=== PATIENT | female | born 1985 | race Caucasian/White ===

== ENCOUNTER 2020-01-11 09:50 | Emergency (ER) | payer BC, SELFPAY ==
[2020-01-11] VITALS (7 sets, daily range): BP systolic 103–116; BP diastolic 55–63; PULSE 72–96; RESP 17–18; TEMP 36.7; O2SAT 97–100; BMI 21.9
--- NOTE | 2020-01-11 10:01 | CT_ITS ---
WS: [id number] CT ABDOMEN PELVIS TECHNIQUE: Noncontrast CT of the abdomen and pelvis with coronal and sagittal reformatted images. CLINICAL INFORMATION: L flank/abdominal pain COMPARISON: None. DLP: 715.[address] scans at [facility] use at least one of these dose optimization techniques: automat ed exposure control; mA and/or kV adjustment per patient size (includes targeted exams where dose is matched to clinical indication); or iterative reconstruction. FINDINGS: 3 mm calculus in the pelvis appears to be in or adjacent to the distal left ureter just pro ximal to the UVJ. Mild left hydroureter. Recommend correlation for left flank pain symptoms. No obstr ucting right renal parenchymal or ureteral calculi. No hydronephrosis in either kidney. Bladder is co mpressed in the inferior pelvis due to adnexal cystic lesion and lobulated uterus. Right adnexal low-attenuation cystic-appearing lesion measuring 4.5 x 4.1 CM. Additional left adnexal cyst measuring 2.1 x 2.1 CM. Small amount of free fluid in the cul-de-sac eccentric to the right. No periaortic lymphadenopathy. No pelvic lymphadenopathy. Noncontrast liver is normal. Normal noncontrast spleen. Normal adrenal glands. Appendix not well visu alized but no evidence of acute appendicitis. Lung bases are well aerated. Normal GE junction. Noncontrast pancreas is normal.Rectosigmoid constipa tion. Mild lumbar curve convex right. CT/CT kidney stone 76810 IMPRESSION: 1. 3 mm calculus distal LEFT ureter just proximal to the UVJ. Mild left hydrou reter. No hydronephrosis. Recommend correlation for left flank pain. 2. No obstructing RIGHT renal parenchymal or ureteral calculi. 3. Large right adnexal low-attenuation cystic-appearing lesion measuring 4.1 x 4.5 CM. Additional smaller left ovarian cyst measuring 2.1 CM. Recommend furth er evaluation with pelvic ultrasound. 4. Small amount of free fluid in the cul-de-sac eccentric to the right. 5. Mild rectosigmoid constipation. Notified WALKER Quinonez at 01/11/2020 11:46 AM.
--- NOTE | 2020-01-11 10:01 | W.ED.FEMALGU ---
HPI - Female Genitourinary General: Chief complaint: Urogenital-Female Stated complaint: RIGHT FLANK AND ABD PAIN Time Seen by Provider: 01/11/20 09:53 Source: patient Mode of arrival: ambulatory Limitations: no limitations History of Present Illness: HPI Narrative: Patient is a nice 34-year-old female who presents to ED today with a complaint of fairly sudden onset left flank pain that seems to radiate around into her left abdomen. She is describing slight dysuria and urinary urgency. She has no personal history of kidney stones. She denies any UTI symptoms prior to today. She has not been running fevers. She has not had any vomiting. Bowel movements have been normal. MD elicited complaint: flank pain Onset (ago): hour(s) Location of symptoms: LLQ and flank Quality of pain: sharp Consistency: constant Vaginal discharge: none Vaginal bleeding: none Urinary symptoms: Dysuria and Urgency Relieving factors: none Associated symptoms: Reports abdominal pain; Deny headache(s), nausea or vaginal discharge Sexual activity: Yes Patient : No Review of Systems Const: Denies: fever(s) or chills Card: Denies: chest pain Resp: Denies: dyspnea GI: Reports: abdominal pain; Denies: nausea, vomiting or diarrhea : Reports: flank pain, dysuria and urinary urgency; Denies: difficulty voiding, urinary frequency, urinary hesitancy, dribbling, hematuria, genital lesions, vaginal odor, vaginal bleeding, vaginal discharge or pelvic pain Musc: Reports: back pain (L flank); Denies: neck pain, extremity pain, extremity swelling, joint pain or joint swelling Skin/Breast: Denies: rash Neuro: Denies: headache(s) Physical Exam Const: COMMON NORMALS: no acute distress, average body habitus, patient oriented x3, no limitations, healthy appearing, alert and well nourished Resp: COMMON NORMALS: normal respiratory effort and clear to auscultation bilaterally AUSCULTATION: clear to auscultation bilaterally Cardio: COMMON NORMALS: regular rate and regular rhythm RATE: regular rate RHYTHM: regular rhythm GI: COMMON NORMALS: Normal to inspection, nondistended, normoactive bowel sounds present, Soft to palpation, No hepatosplenomegaly present and no masses PALPATION: Yes Soft to palpation, Yes Tenderness to palpation present (GI) (L lower abdomen) and Yes No hepatosplenomegaly present : BLADDER/KIDNEY EXAM: Yes CVA tenderness on the left Back/Pelvis: GENERAL BACK: Yes CVA tenderness Neuro: COMMON NORMALS: patient oriented x3 SENSORIUM/ORIENTATION: Yes alert Skin: COMMON NORMALS: no rashes or lesions noted GENERAL SKIN EXAM: no rashes or lesions noted Course Vital Signs: Vital signs: Vital Signs Temperature 98.1 F 01/11/20 09:56 Pulse Rate 84 01/11/20 13:53 Respiratory Rate 18 01/11/20 13:53 Blood Pressure 103/55 01/11/20 13:53 Pulse Oximetry 97 01/11/20 13:53 MDM - Female MDM Narrative: Medical decision making narrative: Patient's pain controlled here with IV pain medications. She has not been vomiting. CT scan showing 3 mm UVJ stone. She will be given urinary strainer and follow-up with Dr. Chou. CT scan also showed large right and left adnexal cysts, one of which being close to 4.5 cm. Recommended ultrasound. Ultrasound confirmed large hemorrhagic cyst. She will be given follow-up with women's health for further evaluation of this. Strict return to ED precautions given. Lab Data: Labs: Lab Results 01/11/20 01/11/20 01/11/20 Range/Units 10:04 10:04 10:04 WBC 6.2 (4.0-10.0) 10^3/ uL RBC 4.69 (4.1-5.3) 10^6/u L Hgb 13.1 (11.5-15.3) g/dL Hct 41.6 (37.0-47.0) % MCV 88.7 (81-99) fL MCH 27.9 L (28.0-34.0) pg MCHC 31.5 (30.0-36.0) g/dL RDW 12.9 (12.1-15.1) % Plt Count 297 (130-400) 10^3/c mm MPV 9.6 (7.4-10.4) fL Neut % (Auto) 58.7 % Lymph % (Auto) 32.0 % [place] % (Auto) 6.7 % Eos % (Auto) 1.6 % Baso % (Auto) 0.7 % Neut # (Auto) 3.61 (1.8-7.7) 10^3/u L Lymph # (Auto) 2.0 (0.8-4.8) 10^3/u L [place] # (Auto) 0.4 (0.2-0.9) 10^3/u L Eos # (Auto) 0.1 (0.0-0.8) 10^3/u L Baso # (Auto) 0.0 (0.0-0.1) 10^3/u L Nucleated RBC % (a uto) 0 % Nucleated RBCs # 0.0 /100WBC Sodium 139 (136-145) mmol/L Potassium 4.5 (3.5-5.1) mmol/L Chloride 105 (98-107) mmol/L Carbon Dioxide 26 (22-29) mmol/L Anion Gap 12.5 (5-19) BUN 14 (6-20) mg/dL Creatinine 0.9 (0.5-0.9) mg/dL GFR Calculation 72.6 L (90-130) mL/min Glucose 113 (65-115) mg/dL Calculated Osmolal ity 285 (285-295) mOsm/k g Calcium 9.4 (8.5-10.5) mg/dL Total Bilirubin 0.3 (0.15-1.2) mg/dL AST 16 (0-32) U/L ALT 10 (0-33) U/L Alkaline Phosphata se 57 (35-105) IU/L Total Protein 7.2 (6.6-8.7) g/dL Albumin 4.5 (3.5-5.2) g/dL Globulin 2.7 (1.3-4.6) g/dL HCG, Qual Negative (Negative) Urine Color (Yellow) Urine Appearance (CLEAR) Urine pH (5-7) Ur Specific Gravit y (1.005-1.030) Urine Protein (Negative) Urine Glucose (UA) (Normal) Urine Ketones (Negative) Urine Blood (Negative) Urine Nitrate (Negative) Urine Bilirubin (NEGATIVE) Urine Urobilinogen (Negative) mg/dL Ur Leukocyte Danyell ase (Negative) Urine RBC (0-2) /hpf Urine WBC (0-5) /hpf Ur Squamous Epith Cells (0-5) Amorphous Sediment Urine Bacteria (NONE) 01/11/20 Range/Units 10:40 WBC (4.0-10.0) 10^3/ uL RBC (4.1-5.3) 10^6/u L Hgb (11.5-15.3) g/dL Hct (37.0-47.0) % MCV (81-99) fL MCH (28.0-34.0) pg MCHC (30.0-36.0) g/dL RDW (12.1-15.1) % Plt Count (130-400) 10^3/c mm MPV (7.4-10.4) fL Neut % (Auto) % Lymph % (Auto) % [place] % (Auto) % Eos % (Auto) % Baso % (Auto) % Neut # (Auto) (1.8-7.7) 10^3/u L Lymph # (Auto) (0.8-4.8) 10^3/u L [place] # (Auto) (0.2-0.9) 10^3/u L Eos # (Auto) (0.0-0.8) 10^3/u L Baso # (Auto) (0.0-0.1) 10^3/u L Nucleated RBC % (a uto) % Nucleated RBCs # /100WBC Sodium (136-145) mmol/L Potassium (3.5-5.1) mmol/L Chloride (98-107) mmol/L Carbon Dioxide (22-29) mmol/L Anion Gap (5-19) BUN (6-20) mg/dL Creatinine (0.5-0.9) mg/dL GFR Calculation (90-130) mL/min Glucose (65-115) mg/dL Calculated Osmolal ity (285-295) mOsm/k g Calcium (8.5-10.5) mg/dL Total Bilirubin (0.15-1.2) mg/dL AST (0-32) U/L ALT (0-33) U/L Alkaline Phosphata se (35-105) IU/L Total Protein (6.6-8.7) g/dL Albumin (3.5-5.2) g/dL Globulin (1.3-4.6) g/dL HCG, Qual (Negative) Urine Color Yellow (Yellow) Urine Appearance Clear (CLEAR) Urine pH 7 (5-7) Ur Specific Gravit y 1.015 (1.005-1.030) Urine Protein Neg (Negative) Urine Glucose (UA) Norm (Normal) Urine Ketones Negative (Negative) Urine Blood 2+ H (Negative) Urine Nitrate Negative (Negative) Urine Bilirubin Neg (NEGATIVE) Urine Urobilinogen Neg (Negative) mg/dL Ur Leukocyte Danyell ase Negative (Negative) Urine RBC 10-15 H (0-2) /hpf Urine WBC 0-4 H (0-5) /hpf Ur Squamous Epith Cells 0-4 H (0-5) Amorphous Sediment Not Reportable Urine Bacteria 2+ H (NONE) Imaging Data: CT Abd/Pel: Radiologist's impression: [facility] [address] [place] [address] CT Scan Report Signed Patient: Nadine Claire Unit #: [id number] : 1985 Age/Sex: 34 / F ADM Date: 01/11/20 Loc: ER Room/Bed: Attending Dr: Ordering Provider/Ordering MD: Fatimah Ordaz Date of Service: 01/11/20 Procedure(s): CT kidney stone 31032 Accession Number(s): [id number] Report Number: [id number] WS: [id number] CT ABDOMEN PELVIS TECHNIQUE: Noncontrast CT of the abdomen and pelvis with coronal and sagittal reformatted images. CLINICAL INFORMATION: L flank/abdominal pain COMPARISON: None. DLP: 715.[address] scans at [facility] use at least one of these dose optimization techniques: automated exposure control; mA and/or kV adjustment per patient size (includes targeted exams where dose is matched to clinical indication); or iterative reconstruction. FINDINGS: 3 mm calculus in the pelvis appears to be in or adjacent to the distal left ureter just proximal to the UVJ. Mild left hydroureter. Recommend correlation for left flank pain symptoms. No obstructing right renal parenchymal or ureteral calculi. No hydronephrosis in either kidney. Bladder is compressed in the inferior pelvis due to adnexal cystic lesion and lobulated uterus. Right adnexal low-attenuation cystic-appearing lesion measuring 4.5 x 4.1 CM. Additional left adnexal cyst measuring 2.1 x 2.1 CM. Small amount of free fluid in the cul-de-sac eccentric to the right. No periaortic lymphadenopathy. No pelvic lymphadenopathy. Noncontrast liver is normal. Normal noncontrast spleen. Normal adrenal glands. Appendix not well visualized but no evidence of acute appendicitis. Lung bases are well aerated. Normal GE junction. Noncontrast pancreas is normal.Rectosigmoid constipation. Mild lumbar curve convex right. CT/CT kidney stone [id number] IMPRESSION: 1. 3 mm calculus distal LEFT ureter just proximal to the UVJ. Mild left hydroureter. No hydronephrosis. Recommend correlation for left flank pain. 2. No obstructing RIGHT renal parenchymal or ureteral calculi. 3. Large right adnexal low-attenuation cystic-appearing lesion measuring 4.1 x 4.5 CM. Additional smaller left ovarian cyst measuring 2.1 CM. Recommend further evaluation with pelvic ultrasound. 4. Small amount of free fluid in the cul-de-sac eccentric to the right. 5. Mild rectosigmoid constipation. Notified WALKER Quinonez at 01/11/2020 11:46 AM. Dictated By: Xavier Peralta MD Signed By: Xavier Peralta MD Signed Date/Time: 01/11/20 1146 DD/ 1116 US TV: Radiologist's impression: [address] [place] [address] Ultrasound Report Signed Patient: Nadine Claire Unit #: [id number] : 1985 Age/Sex: 34 / F ADM Date: 01/11/20 Loc: ER Room/Bed: Attending Dr: Ordering Provider/Ordering MD: Fatimah Ordaz Date of Service: 01/11/20 Procedure(s): US transvaginal 95284 Accession Number(s): [id number] Report Number: [id number] WS: [id number] ULTRASOUND PELVIS TECHNIQUE: Transvaginal. CLINICAL INFORMATION: Adnexal cysts; pain : No. COMPARISON: None. FINDINGS: Uterus Orientation: Anteverted. Size: 9.4 x 4.2 x 6.5 cm Masses: None. Cervix: Incidental nabothian cysts. Endometrium: Normal. Endometrium thickness: 10mm . Adnexa: Large complex right hemorrhagic ovarian cyst measuring 4.6 x 3.7 x 4.1 cm. Simple left ovarian cyst measuring 2.5 CCM. Right ovary size: 5.4 x 4.1 x 4.7 cm. Left ovary size: 3.0 x 1.6 x 1.9 cm. Free fluid: Present Other findings: None. US/US transvaginal [id number] IMPRESSION: 1. Small amount of free fluid in the cul-de-sac. 2. Complex hemorrhagic cyst right ovary measuring 4.6 x 3.7 x 4.1 cm. Recommend follow-up in one to 2 menstrual cycles. 3. Exophytic simple left ovarian cyst measuring 2.5 x 2.0 x 2.5 cm 4. Normal uterus and endometrium. Endometrium measures 10 mm. Dictated By: Xavier Peralta MD Signed By: Xavier Peralta MD Signed Date/Time: 01/11/20 1315 DD/ 1307 Discharge Plan Discharge Patient Disposition: Home Clinical Impression: Calculus of distal left ureter, Hemorrhagic cyst of right ovary Condition: Stable Prescriptions: New hydrocodone-acetaminophen 5-325 mg tablet 1 tab PO Q6H PRN (Reason: pain) Qty: 20 RF: 0 Zofran 4 mg tablet 4 mg PO Q6H PRN (Reason: nausea and vomiting) Qty: 14 RF: 0 Flomax 0.4 mg capsule 0.4 mg PO DAILY Qty: 10 RF: 0 Discharge Orders: Discharge Order (Routine); Ordered 01/11/20 Ordered By: Fatimah Ordaz Referrals: Beka Woods DO [Family Provider] - Patient Instructions: Ovarian Cyst (ED), Kidney Stones (ED), How to Strain Your Urine (ED) Activity Restrictions/Additional Instructions: Please follow-up with Dr. Chou for your kidney stone. As discussed start straining your urine and bring the stone with you to your appointment if possible. We will also get you set up with an appointment for women's health in regards to your hemorrhagic right ovarian cyst. Please return to the emergency department for worsening or uncontrollable pain, repetitive episodes of vomiting, fevers greater than 100.4, or any other concerns you may have. I hope you begin to feel better soon. Discharge Date/Time: 01/11/20 13:50 Coding Level of Care Code ED Meter Attendant for Chg Fwd Exam Detailed
[2020-01-11 10:10] LABS: Basophils % 0.7 %; Eosinophils # 0.1 10^3/uL (0.0-0.8); Eosinophils % 1.6 %; Hematocrit 41.6 % (37.0-47.0); Hemoglobin 13.1 g/dL (11.5-15.3); Mean Corpuscular HGB Conc 31.5 g/dL (30.0-36.0); Mean Corpuscular Hemoglobin 27.9 pg (28.0-34.0); Mean Corpuscular Volume 88.7 fL (81-99); Mean Platelet Volume 9.6 fL (7.4-10.4); Monocytes # 0.4 10^3/uL (0.2-0.9); Monocytes % 6.7 %; Neutrophils # 3.61 10^3/uL (1.8-7.7); Neutrophils % 58.7 %; Nucleated Red Blood Cells % 0 %; Platelet Count 297 10^3/cmm (130-400); Red Blood Count 4.69 10^6/uL (4.1-5.3); Red Cell Distribution Width 12.9 % (12.1-15.1); White Blood Count 6.2 10^3/uL (4.0-10.0)
[2020-01-11] MEDS: ondansetron 2 mg/ML SDV 2 mL 4 MG IVP (10:11)
[2020-01-11] MEDS: morphine 4 mg/mL SDV 1 mL IVP (10:11)
[2020-01-11] MEDS: sodium chloride 0.9% 1,000 ML 999 ML IV (10:12)
[2020-01-11 10:32] LABS: Alanine Aminotransferase 10 U/L (0-33); Albumin Level 4.5 g/dL (3.5-5.2); Alkaline Phosphatase 57 IU/L (35-105); Anion Gap 12.5 (5-19); Aspartate Amino Transferase 16 U/L (0-32); Blood Urea Nitrogen 14 mg/dL (6-20); Calcium 9.4 mg/dL (8.5-10.5); Carbon Dioxide 26 mmol/L (22-29); Chloride 105 mmol/L (98-107); Globulin 2.7 g/dL (1.3-4.6); Glomerular Filtration Rate 72.6 mL/min (90-130); Glucose 113 mg/dL (65-115); Osmolality Calculated 285 mOsm/kg (285-295); Potassium 4.5 mmol/L (3.5-5.1); Sodium 139 mmol/L (136-145); Total Bilirubin 0.3 mg/dL (0.15-1.2); Total Protein 7.2 g/dL (6.6-8.7)
[2020-01-11 10:37] LABS: HCG, Serum Qual Negative (Negative)
[2020-01-11 10:55] LABS: Bilirubin Urine Neg (NEGATIVE); Blood Urine 2+ (Negative); Glucose Urine UA Norm (Normal); Ketones Urine Negative (Negative); Nitrate Urine Negative (Negative); Protein Urine Neg (Negative); Specific Gravity, Urine 1.015 (1.005-1.030); Urine Appearance Clear (CLEAR); Urine Color Yellow (Yellow); pH Urine 7 (5-7)
[2020-01-11 10:56] LABS: Add Urine Microscopic? YES; Leukocyte Esterase Urine Negative (Negative); Urobilinogen Urine Neg (Negative)
[2020-01-11 10:59] LABS: Squamous Epithelial Cell Urine 0-4 (0-5)
[2020-01-11 11:00] LABS: Add Urine Culture? Yes; Bacteria Urine 2+; WBC Urine 0-4 /hpf (0-5)
--- NOTE | 2020-01-11 11:42 | US_ITS ---
WS: [id number] ULTRASOUND PELVIS TECHNIQUE: Transvaginal. CLINICAL INFORMATION: Adnexal cysts; pain : No. COMPARISON: None. FINDINGS: Uterus Orientation: Anteverted. Size: 9.4 x 4.2 x 6.5 cm Masses: None. Cervix: Incidental nabothian cysts. Endometrium: Normal. Endometrium thickness: 10mm . Adnexa: Large complex right hemorrhagic ovarian cyst measuring 4.6 x 3.7 x 4.1 cm. Simple left ovaria n cyst measuring 2.5 CCM. Right ovary size: 5.4 x 4.1 x 4.7 cm. Left ovary size: 3.0 x 1.6 x 1.9 cm. Free fluid: Present Other findings: None. US/US transvaginal [id number] IMPRESSION: 1. Small amount of free fluid in the cul-de-sac. 2. Complex hemorrhagic cyst right ovary measuring 4.6 x 3.7 x 4.1 cm. Recommen d follow-up in one to 2 menstrual cycles. 3. Exophytic simple left ovarian cyst measuring 2.5 x 2.0 x 2.5 cm 4. Normal uterus and endometrium. Endometrium measures 10 mm.
[2020-01-11] MEDS: ketorolac 30 mg/mL INJ IVP (11:51)
[2020-01-11] MEDS: HYDROmorphone 1 mg/mL INJ 1 mL 0.5 MG IVP (12:16)
--- NOTE | 2020-01-12 09:20 | DCPLANNER ---
manager account management had message to schedule a follow up appointment with Dr. Chou. manager account management called the office of Dr. Chou, spoke with Pattie, gave clinic patients information. manager account management was told that patients information would be printed and reviewed. Clinic will call patient with appointment information.
--- NOTE | 2020-01-13 15:36 | DCPLANNER ---
Patient had a follow up appointment scheduled for 01.13.[address] Chou. Patient did not attend the appointment.
== END 2020-01-11 13:50 | disposition home or self-care (01) ==
PROVIDERS: Emergency Provider Physician Assistant; Family Provider Electrodiagnostic Medicine
DX: N20.1 Calculus of ureter (principal); N83.201 Unspecified ovarian cyst, right side
CPT/HCPCS: 12345; 36415; 74176; 76830; 80053; 81001; 84703; 85025; 87086; 96360; 96361; 96365; 96374; 96375; 99283; 99284; J0131; J1170; J1885; J2270; J2405; J7030

== ENCOUNTER → 2020-04-25 09:05 | Outpatient (BNVA) | payer BC, SELFPAY | PROVIDERS: Family Provider Electrodiagnostic Medicine; PCP Urology; Visit Provider Family Medicine Adult Medicine | DX: R94.4 Abnormal results of kidney function studies (principal); F41.9 Anxiety disorder, unspecified; F32.9 Major depressive disorder, single episode, unspecified; F41.1 Generalized anxiety disorder; F41.0 Panic disorder [episodic paroxysmal anxiety] | CPT/HCPCS: 80053; 80061; 83036; 84443; 85025 ==

== ENCOUNTER 2020-09-27 11:21 | Outpatient (CLI) | payer SELFPAY ==
--- NOTE | 2020-09-27 11:45 | US_ITS ---
WS: [id number] Ultrasound abdomen, limited. History: RIGHT lower quadrant pain. Comparison: None. Ultrasound is directed to the RIGHT lower quadrant in the area of pain. Normal peristalsing loops of bowel. No inflammatory or hypervascular mass or free fluid. US/US appendix [id number] IMPRESSION: No ultrasound evidence for appendicitis.
--- NOTE | 2020-09-27 11:45 | US_ITS ---
WS: [id number] TRANSABDOMINAL PELVIC AND TRANSVAGINAL PELVIC ULTRASOUND HISTORY: Hx of ovarian cyst and now with RLQ pain for 24 hours. COMPARISON: None available. Uterus: 9.8 cm x 5.7 cm x 4.1 cm. Mildly enlarged anteverted uterus. No fibroid or mass. Endometrium: 0.7 cm. Normal homogeneity. No increased vascularity. Right ovary: 5.3 cm x 3.2 cm x 2.5 cm. Slightly enlarged ovary. Ovoid cyst associated with the ovary measures 3.0 x 1.4 x 2.5 cm. There is fluid adjacent to the ovary extending into the cul-de-sac. This fluid is mildly complex. Left ovary: 3.0 cm x 2.0 cm x 1.7 cm. Normal size, echogenicity and vascularity. Small amount of complex free fluid in the cul-de-sac and RIGHT adnexa. US/US pelvic with transvaginal IMPRESSION: 1. Normal endometrium. 2. Small amount of complex free fluid in the RIGHT adnexa and cul-de-sac assoc iated with a RIGHT ovarian cyst which appears partially collapsed.
== END 2020-09-27 11:22 | disposition home or self-care (01) ==
LOC: RAD 11:25
PROVIDERS: PCP Family Medicine Adult Medicine; Visit Provider Family Medicine Adult Medicine
DX: R10.31 Right lower quadrant pain (principal)
CPT/HCPCS: 76705; 76830; 76856; 80053; 85025

== ENCOUNTER → 2020-12-04 11:57 | Outpatient (BNVA) | payer BC, SELFPAY | PROVIDERS: PCP Family Medicine Adult Medicine; Visit Provider Nurse Practitioner Family | DX: Z20.822 Contact with and (suspected) exposure to COVID-19 (principal); J06.9 Acute upper respiratory infection, unspecified | CPT/HCPCS: 87635 ==

== ENCOUNTER 2022-09-23 20:39 | Emergency (ER) | payer BC, SELFPAY ==
[2022-09-23 20:47] VITALS: BP 102/61; PULSE 79; RESP 17; TEMP 36.8; O2SAT 98
[2022-09-23 21:20] LABS: Basophils # 0.1 10^3/uL (0.0-0.1); Basophils % 0.6 %; Eosinophils # 0.1 10^3/uL (0.0-0.8); Eosinophils % 1.7 %; Hematocrit 38.5 % (37.0-47.0); Hemoglobin 12.7 g/dL (11.5-15.3); Lymphocytes # 2.9 10^3/uL (0.8-4.8); Lymphocytes % 34.2 %; Mean Corpuscular Hemoglobin 27.8 pg (28.0-34.0); Mean Corpuscular Volume 84.2 fl (81-99); Mean Platelet Volume 9.3 fL (7.4-10.4); Monocytes # 0.6 10^3/uL (0.2-0.9); Monocytes % 6.5 %; Neutrophils % 56.6 %; Nucleated Red Blood Cells % 0 %; Platelet Count 302 10^3/cmm (130-400); Red Blood Count 4.57 10^6/uL (4.1-5.3); Red Cell Distribution Width 13.4 % (12.1-15.1); White Blood Count 8.5 10^3/uL (4.0-10.0)
[2022-09-23 21:31] LABS: HCG, Serum Qual Negative (Negative)
[2022-09-23 21:43] LABS: Alanine Aminotransferase 12 U/L (0-33); Albumin Level 4.5 g/dL (3.5-5.2); Alkaline Phosphatase 54 U/L (35-105); Anion Gap 15.5 (5-19); Aspartate Amino Transferase 16 U/L (0-32); Blood Urea Nitrogen 11 mg/dL (6-20); Calcium 9.8 mg/dL (8.5-10.5); Carbon Dioxide 27 mmol/L (22-29); Chloride 104 mmol/L (98-107); Globulin 2.9 g/dL (1.3-4.6); Glomerular Filtration Rate 71.3 mL/min (90-130); Glucose 89 mg/dL (65-115); Lipase 49 U/L (13-60); Osmolality Calculated 295 mOsm/kg (285-295); Potassium 3.5 mmol/L (3.5-5.1); Sodium 143 mmol/L (136-145); Total Bilirubin 0.3 mg/dL (0.15-1.2); Total Protein 7.4 g/dL (6.6-8.7)
--- NOTE | 2022-09-23 21:54 | W.ED.ABDPA2 ---
HPI - Abdominal Pain General: Chief Complaint: Abdominal Pain Stated Complaint: abd pain Time Seen by Provider: 09/23/22 21:51 Source: patient Mode of arrival: ambulatory Limitations: no limitations History of Present Illness: 37-year-old female states that suddenly at 6 PM she started having left flank pain that radiated to her left abdomen. States pain is very sharp in nature and was 8 out of 10 she denies any fever denies any dysuria or vaginal bleeding. She states that roughly 30 minutes ago the pain just subsided and its been completely resolved since then she has no complaints at this time denies any worsening or improving factors. Associated Symptoms: Denies chills, diarrhea, dysuria, fever(s), nausea and vomiting Review of Systems Const: Denies: fever(s), chills, body aches or change in appetite ENMT: Denies: throat pain or dental pain Card: Denies: chest pain Resp: Denies: dyspnea GI: Reports: abdominal pain; Denies: nausea, vomiting or diarrhea : Reports: flank pain; Denies: dysuria Musc: Denies: neck pain or back pain Skin/Breast: Denies: rash Neuro: Denies: headache(s) PFSH ED PFSH: Medical History Allergic rhinitis due to allergen Continuous RLQ abdominal pain Generalized anxiety disorder with panic attacks Psoriasis Ruptured ovarian cyst Family History Other Cancer Diabetes Psychiatric illness Stroke Social History Smoking and tobacco status: former smoker Second hand smoke exposure: No Alcohol intake: current Alcohol intake frequency: few times a month Alcohol type: wine Substance/Drug Use: never Adopted: No Marital status: Number of children: 2 Current occupational status: unemployed Current occupation: Stay at home mom Physical Exam Const: COMMON NORMALS: no acute distress, patient oriented x3 and healthy appearing HENMT: COMMON NORMALS: normocephalic and atraumatic HEAD & SCALP: normocephalic and atraumatic Eye: COMMON NORMALS: conjunctivae normal CONJUNCTIVA: Yes conjunctivae normal Neck/C-Spine: COMMON NORMALS: full ROM and supple Chest: COMMONS NORMALS: normal inspection of the chest and normal palpation of entire chest wall Resp: COMMON NORMALS: normal respiratory effort, No retractions, No use of accessory muscles and clear to auscultation bilaterally AUSCULTATION: clear to auscultation bilaterally Cardio: COMMON NORMALS: regular rate, regular rhythm and No murmurs present (Cardio) RATE: regular rate RHYTHM: regular rhythm GI: COMMON NORMALS: Normal to inspection, nondistended, normoactive bowel sounds present, Soft to palpation, non-tender and no masses PALPATION: Yes Soft to palpation : COMMON NORMALS: Yes no CVA tenderness BLADDER/KIDNEY EXAM: Yes no CVA tenderness Back/Pelvis: COMMON NORMALS: no CVA tenderness Extremity: COMMON NORMALS: normal to inspection and full ROM Neuro: COMMON NORMALS: patient oriented x3, moves all extremities and no focal motor deficits Psych: COMMON NORMALS: mental status grossly normal, Normal thought process present and cooperative THOUGHT PROCESS: Normal thought process present Skin: COMMON NORMALS: no rashes or lesions noted and no wounds GENERAL SKIN EXAM: no rashes or lesions noted Course Vital Signs: Vital signs: Vital Signs Temperature 98.2 F 09/23/22 20:47 Pulse Rate 79 09/23/22 20:47 Respiratory Rate 17 09/23/22 20:47 Blood Pressure 102/61 09/23/22 20:47 Pulse Oximetry 98 09/23/22 20:47 Oxygen Delivery Me thod Room Air 09/23/22 20:47 MDM - Abdominal Pain Medical Decision Making Patient presents here with abdominal pain is since resolved it could have been a stone or spasm her lab work here is all normal she had no more pain here exam is benign she does not warrant any imaging at this time she is to follow-up with PCP and return if worsening. Medical Records I reviewed the patient's medical records. Lab Data I reviewed the patient's lab results. 09/23/22 21:06 09/23/22 21:06 Labs/Radiology: Laboratory Results WBC 8.5 10^3/uL (4.0-10.0) 09/23/22 21:06 RBC 4.57 10^6/uL (4.1-5.3) 09/23/22 21:06 Hgb 12.7 g/dL (11.5-15.3) 09/23/22 21:06 Hct 38.5 % (37.0-47.0) 09/23/22 21:06 MCV 84.2 fl (81-99) 09/23/22 21:06 MCH 27.8 pg (28.0-34.0) L 09/23/22 21:06 MCHC 33.0 g/dL (30.0-36.0) 09/23/22 21:06 RDW 13.4 % (12.1-15.1) 09/23/22 21:06 Plt Count 302 10^3/cmm (130-400) 09/23/22 21:06 MPV 9.3 fL (7.4-10.4) 09/23/22 21:06 Neut % (Auto) 56.6 % 09/23/22 21:06 Lymph % (Auto) 34.2 % 09/23/22 21:06 [place] % (Auto) 6.5 % 09/23/22 21:06 Eos % (Auto) 1.7 % 09/23/22 21:06 Baso % (Auto) 0.6 % 09/23/22 21:06 Neut # (Auto) 4.80 10^3/uL (1.8-7.7) 09/23/22 21:06 Lymph # (Auto) 2.9 10^3/uL (0.8-4.8) 09/23/22 21:06 [place] # (Auto) 0.6 10^3/uL (0.2-0.9) 09/23/22 21:06 Eos # (Auto) 0.1 10^3/uL (0.0-0.8) 09/23/22 21:06 Baso # (Auto) 0.1 10^3/uL (0.0-0.1) 09/23/22 21:06 Nucleated RBC % (auto) 0 % 09/23/22 21:06 Nucleated RBCs # 0.0 /100WBC 09/23/22 21:06 Sodium 143 mmol/L (136-145) 09/23/22 21:06 Potassium 3.5 mmol/L (3.5-5.1) 09/23/22 21:06 Chloride 104 mmol/L (98-107) 09/23/22 21:06 Carbon Dioxide 27 mmol/L (22-29) 09/23/22 21:06 Anion Gap 15.5 (5-19) 09/23/22 21:06 BUN 11 mg/dL (6-20) 09/23/22 21:06 Creatinine 0.9 mg/dL (0.5-0.9) 09/23/22 21:06 GFR Calculation 71.3 mL/min (90-130) L 09/23/22 21:06 Glucose 89 mg/dL (65-115) 09/23/22 21:06 Calculated Osmolality 295 mOsm/kg (285-295) 09/23/22 21:06 Calcium 9.8 mg/dL (8.5-10.5) 09/23/22 21:06 Total Bilirubin 0.3 mg/dL (0.15-1.2) 09/23/22 21:06 AST 16 U/L (0-32) 09/23/22 21:06 ALT 12 U/L (0-33) 09/23/22 21:06 Alkaline Phosphatase 54 U/L (35-105) 09/23/22 21:06 Total Protein 7.4 g/dL (6.6-8.7) 09/23/22 21:06 Albumin 4.5 g/dL (3.5-5.2) 09/23/22 21:06 Globulin 2.9 g/dL (1.3-4.6) 09/23/22 21:06 Lipase 49 U/L (13-60) 09/23/22 21:06 HCG, Qual Negative (Negative) 09/23/22 21:06 Urine Color Colorless (Yellow) 09/23/22 22:03 Urine Appearance Clear (CLEAR) 09/23/22 22:03 Urine pH 7 (5-7) 09/23/22 22:03 Ur Specific [place] 1.010 (1.005-1.030) 09/23/22 22:03 Urine Protein Neg (Negative) 09/23/22 22:03 Urine Glucose (UA) Norm (Normal) 09/23/22 22:03 Urine Ketones 1+ (Negative) H 09/23/22 22:03 Urine Blood Neg (Negative) 09/23/22 22:03 Urine Nitrate Negative (Negative) 09/23/22 22:03 Urine Bilirubin Neg (Negative) 09/23/22 22:03 Urine Urobilinogen Neg mg/dL (Negative) 09/23/22 22:03 Ur Leukocyte Esterase Negative (Negative) 09/23/22 22:03 Discharge Plan Discharge Patient Disposition: Home Clinical Impression: Abdominal pain Condition: Stable Prescriptions: New Naprosyn 500 mg tablet 500 mg PO BID PRN (Reason: pain) Qty: 20 0RF No Action sertraline 50 mg tablet 50 mg PO DAILY 90 Days Qty: 90 3RF Hold Instructions: Non-Compliance fluticasone propionate [Flonase Allergy Relief] 50 mcg/actuation spray,suspension 1 spray intranasal DAILY PRN (Reason: nasal congestion) Qty: 16 5RF Rx Instructions: administer into each nostril fluconazole [Diflucan] 150 mg tablet 150 mg PO DAILY Qty: 1 0RF terbinafine HCl 1 % cream 1 applic topical DAILY 7 Days Qty: 15 0RF cetirizine 10 mg tablet See Rx Instructions .ROUTE .COMPLEX Qty: 90 2RF Dose Instruction: TAKE 1 TABLET BY MOUTH EVERY MORNING FOR ALLERGIES Rx Instructions: TAKE 1 TABLET BY MOUTH EVERY MORNING FOR ALLERGIES Discharge Orders: Discharge ED (Routine); Ordered 09/23/22 Ordered By: Daisy Tran Referrals: Norberto Costa MD [Primary Care Provider] - 1-3 days Discharge Diet: Advance as tolerated Discharge Activity: Resume usual activity Patient Instructions: Abdominal Pain (ED) Coding Level of Care Code ED [facility] for Carlos Avitia
[2022-09-23 22:00] VITALS: BP 103/72
[2022-09-23 22:06] LABS: Add Urine Microscopic? NO; Charge for UA Resulting for Rev
[2022-09-23 22:07] LABS: Glucose Urine UA Norm (Normal); Ketones Urine 1+ (Negative); Protein Urine Neg (Negative); Urine Appearance Clear (CLEAR); Urine Color Colorless (Yellow); pH Urine 7 (5-7)
[2022-09-23 22:08] LABS: Bilirubin Urine Neg (Negative); Blood Urine Neg (Negative); Leukocyte Esterase Urine Negative (Negative); Nitrate Urine Negative (Negative); Urobilinogen Urine Neg (Negative)
[2022-09-23 22:24] VITALS: BP 109/65; PULSE 64; RESP 14; O2SAT 98
== END 2022-09-23 22:28 | disposition home or self-care (01) ==
PROVIDERS: Emergency Provider Emergency Medicine; PCP Family Medicine Adult Medicine
DX: R10.9 Unspecified abdominal pain (principal); Z87.891 Personal history of nicotine dependence
CPT/HCPCS: 36415; 80053; 81003; 83690; 84703; 85025; 99283

== ENCOUNTER → 2023-03-14 10:28 | Outpatient (BNVA) | payer BC, SELFPAY | PROVIDERS: PCP Family Medicine Adult Medicine; Visit Provider Family Medicine | DX: R05.9 Cough, unspecified (principal); J01.90 Acute sinusitis, unspecified; B96.89 Other specified bacterial agents as the cause of diseases classified elsewhere | CPT/HCPCS: 87400 ==

== ENCOUNTER → 2023-05-30 10:49 | Outpatient (BNVA) | payer BC, SELFPAY | PROVIDERS: PCP Family Medicine Adult Medicine; Visit Provider Emergency Medicine | DX: J06.9 Acute upper respiratory infection, unspecified (principal); J10.1 Influenza due to other identified influenza virus with other respiratory manifestations; H66.002 Acute suppurative otitis media without spontaneous rupture of ear drum, left ear | CPT/HCPCS: 87400 ==

== ENCOUNTER → 2023-10-28 14:05 | Outpatient (BNVA) | payer BC, SELFPAY | PROVIDERS: PCP Family Medicine Adult Medicine; Visit Provider Obstetrics & Gynecology | DX: N89.8 Other specified noninflammatory disorders of vagina (principal) | CPT/HCPCS: 87491; 87591; 87661 ==

== ENCOUNTER → 2023-11-02 10:28 | Outpatient (BNVA) | payer BC, SELFPAY | PROVIDERS: PCP Family Medicine Adult Medicine; Visit Provider Obstetrics & Gynecology | DX: N88.8 Other specified noninflammatory disorders of cervix uteri (principal); R10.2 Pelvic and perineal pain | CPT/HCPCS: 76830 ==

== ENCOUNTER → 2024-08-11 10:11 | Outpatient (BNVA) | payer BC, SELFPAY | PROVIDERS: PCP Family Medicine; Visit Provider Family Medicine | DX: Z00.00 Encounter for general adult medical examination without abnormal findings (principal) | CPT/HCPCS: 80053; 80061; 84443; 85025 ==